=== PATIENT | female | born 1990 | race Caucasian/White ===

== ENCOUNTER 2017-04-27 11:42 | Observation (INO) ==
[2017-04-27 12:26] LABS: Bilirubin,Urine Negative (Negative); Blood,Urine Negative (Negative); Clarity,Urine Clear (Clear); Color,Urine Yellow (Yellow); Glucose,Urine (UA) Normal (Normal); Ketones,Urine Negative (Negative); Leukocyte Esterase,Urine Negative (Negative); Nitrite,Urine Negative (Negative); Protein,Urine Negative (Neg-Trace); Specific Gravity,Urine 1.013 (1.010-1.025); Urobilinogen,Urine Normal (Normal)
[2017-04-27 12:32] LABS: Amphetamine Screen,Urine Negative ng/mL (Cutoff=1000); Barbiturate Screen,Urine Negative ng/mL (Cutoff=200); Benzodiazepines Screen,Urine Negative ng/mL (Cutoff=200); Cannabinoid Screen,Urine Negative ng/mL (Cutoff = 50); Cocaine Screen,Urine Negative ng/mL (Cutoff= 300); Opiate Screen,Urine Negative ng/mL (Cutoff=300); Phencyclidine Screen,Urine Negative ng/mL (Cutoff=25)
--- NOTE | 2017-04-27 13:17 | OB/GYN Progress Note ---
Date of Encounter: 04/27/17 Time of Encounter: 13:13 - Assessment and Plan (1) 20 weeks gestation of Status: Acute FHTs 150s, Cervix closed; no evidence of premature onset of labor Discharged with return precautions (2) Vaginal discharge during in second trimester Status: Acute Speculum exam shows normal vaginal discharge. Negative pooling. Cervix closed/ thick/ on exam. Discharged home with labor precautions Subjective - Subjective Interval history: 20 weeks by LMP -- pt thinks may have lost some of the mucous plug. She has also has been having cramping, with no acute change in quality/severity/duration /timing. Called OB office and was referred to L&D for evaluation. Reports good movement, denies vaginal bleeding or leaking of fluid. Antepartum ROS: other (no other acute complaints), no loss of fluid, no vaginal bleeding Objective - Vital Signs Vital Signs: Intake and Output 04/26/17 04/27/17 04/27/17 23:59 07:59 15:59 Other: Weight 58 kg Patient Weight 04/27/17 23:59 Weight 58 kg - Exam FHR: auscultation normal FHR comments: FHTs 150-160 Auscultation: bilateral: normal Abdomen: Present: normal appearance, soft Uterus: Present: normal Cervical dilation: closed
== END 2017-04-27 13:00 | disposition home or self-care (01) ==
LOC: 1NENULAB
PROVIDERS: ADMIT Advanced Practice Midwife; ATTEND Advanced Practice Midwife

== ENCOUNTER → 2017-07-06 16:28 | Observation (INO) ==
[2017-07-06 14:53] LABS: Amphetamine Screen,Urine Negative ng/mL (Cutoff=1000); Barbiturate Screen,Urine Negative ng/mL (Cutoff=200); Benzodiazepines Screen,Urine Negative ng/mL (Cutoff=200); Cannabinoid Screen,Urine Negative ng/mL (Cutoff = 50); Cocaine Screen,Urine Negative ng/mL (Cutoff= 300); Opiate Screen,Urine Negative ng/mL (Cutoff=300); Phencyclidine Screen,Urine Negative ng/mL (Cutoff=25)
--- NOTE | 2017-07-06 15:13 | OB/GYN Progress Note ---
Date of Encounter: 07/06/17 Time of Encounter: 15:11 - Assessment and Plan (1) Decreased movement Current Visit: Yes Status: Acute Pt feeling movement here. Reacive NST, discharged home with when to return to [facility]. Qualifiers: Fetus number: single or unspecified fetus Trimester: third trimester Qualified Code(s): O36.8130 - Decreased movements, third trimester, not applicable or unspecified Subjective - Subjective Interval history: Pt states only 1 movement this morning, fetus was really active last night. Denies contractions, vaginal bleeding or leaking of fluid. Pt has felt movement in triage. Antepartum ROS: no loss of fluid, no vaginal bleeding, no movement normal , no contractions Objective - Exam FHR: auscultation normal FHR comments: reactive nST baseline 135 Auscultation: bilateral: normal Abdomen: Present: normal appearance, soft, gravid
== END | disposition home or self-care (01) ==
LOC: 1NENULAB
PROVIDERS: ADMIT Obstetrics & Gynecology; ATTEND Obstetrics & Gynecology

== ENCOUNTER → 2017-08-11 13:36 | Observation (INO) ==
--- NOTE | 2017-08-11 12:48 | OB/GYN Progress Note ---
Date of Encounter: 08/11/17 Time of Encounter: 12:46 - Assessment and Plan (1) 35 weeks gestation of Current Visit: Yes Status: Acute Extended monitoring x 2 hours - category I tracing Follow up in office as scheduled Return tomorrow for BMZ labor precautions given OK to discharge home (2) NST (non-stress test) reactive on surveillance Current Visit: Yes Status: Acute Subjective - Subjective Principal diagnosis: extended monitoring after questionable NST Interval history: Ms. Leiva is a 27-year-old at 35 weeks 1 days gestation with an estimated date of of 09/14/17 dated by LMP. She presents from the office today with concerns after questionable nonstress test. Per Dr. Perdomo she had 1 late deceleration. She endorses good movement and denies contractions, leakage of fluid, vaginal bleeding. Antepartum ROS: movement normal, no new complaints, no loss of fluid, no vaginal bleeding, no contractions Objective - Vital Signs Vital Signs: Intake and Output 08/10/17 08/11/17 08/11/17 23:59 07:59 15:59 Other: Weight 64.093 kg Patient Weight 08/11/17 23:59 Weight 64.093 kg - Exam FHR: category 1 FHR comments: Baseline 135 Moderate variability Accelerations present 15 x 15 No decelerations FHR category I [place]-rare contractions seen, patient denies feeling them. Auscultation: bilateral: normal Abdomen: Present: normal appearance, soft, gravid Uterus: Present: normal, firm
[2017-08-11 13:21] LABS: Amphetamine Screen,Urine Negative ng/mL (Cutoff=1000); Barbiturate Screen,Urine Negative ng/mL (Cutoff=200); Benzodiazepines Screen,Urine Negative ng/mL (Cutoff=200); Cannabinoid Screen,Urine Negative ng/mL (Cutoff = 50); Cocaine Screen,Urine Negative ng/mL (Cutoff= 300); Opiate Screen,Urine Negative ng/mL (Cutoff=300); Phencyclidine Screen,Urine Negative ng/mL (Cutoff=25)
[~2017-08-11 13:36] MED LIST: Betamethasone Acet/SodPhos 6 MG/ML MDV IM SCH
== END | disposition home or self-care (01) ==
LOC: 1NENULAB
PROVIDERS: ADMIT Obstetrics & Gynecology; ATTEND Obstetrics & Gynecology

== ENCOUNTER 2017-09-12 04:00 | Inpatient (IN) ==
[2017-09-12] MEDS ORDERED: *HR* Nalbuphine 10 MG/ML AMPUL IVP PRN (05:03)
[2017-09-12] MEDS ORDERED: Naloxone 0.4 MG/ML INJ IVP PRN (05:03)
[2017-09-12] MEDS ORDERED: Ondansetron 4 MG/2 ML VIAL IVP PRN (05:03)
[2017-09-12] MEDS ORDERED: Famotidine 20 MG/2 ML VIAL IVP PRN (05:03)
[2017-09-12] MEDS ORDERED: Metoclopramide 10 MG/2 ML VIAL IVP PRN (05:03)
[2017-09-12 05:19] LABS: Basophils # 0.1 K/mcL (0.0-0.2); Basophils % 0.5 %; Eosinophils # 0.2 K/mcL (0.0-0.6); Eosinophils % 1.2 %; Hematocrit 40.4 % (35.3-44.9); Hemoglobin 13.7 g/dL (11.5-15.4); Immature Granulocytes % 1.1 % (0-4); Lymphocytes % 29.5 %; Mean Corpuscular HGB Conc 33.9 g/dL (31.6-35.5); Mean Corpuscular Hemoglobin 29.2 pg (28.0-33.3); Mean Corpuscular Volume 86.1 fL (83.0-100.0); Mean Platelet Volume 9.3 fL (9.4-12.4); Monocytes # 0.9 K/mcL (0.0-1.3); Monocytes % 5.4 %; Neutrophils # 10.5 K/mcL (1.6-8.9); Platelet Count 309 K/mcL (140-400); Red Blood Count 4.69 M/mcL (3.82-4.97); Red Cell Distribution Width 14.3 % (11.5-14.5); Segmented Neutrophils % 62.3 %
[2017-09-12] MEDS: Clindamycin 900 MG/50 ML 900 MG/50 ML IV.SOLN IVPB SCH ×2 (05:31→13:38)
[2017-09-12] MEDS: Ringers Solution, Lactated 1,000 ML IVC SCH ×2 (05:32→13:37)
[2017-09-12 05:44] LABS: Amphetamine Screen,Urine Negative ng/mL (Cutoff=1000); Barbiturate Screen,Urine Negative ng/mL (Cutoff=200); Benzodiazepines Screen,Urine Negative ng/mL (Cutoff=200); Cannabinoid Screen,Urine Negative ng/mL (Cutoff = 50); Cocaine Screen,Urine Negative ng/mL (Cutoff= 300); Opiate Screen,Urine Negative ng/mL (Cutoff=300); Phencyclidine Screen,Urine Negative ng/mL (Cutoff=25)
[2017-09-12 05:45] LABS: Alanine Aminotransferase 12 Units/L (7-52); Aspartate Amino Transferase 19 Units/L (13-39); BUN/Creatinine Ratio 15 (6-26); Blood Urea Nitrogen 9 mg/dL (6-20); Lactate Dehydrogenase 142 Units/L (140-271); eGFR For African Americans > 60 (> 60); eGFR For Non-African Americans > 60 (> 60)
[2017-09-12] MEDS: miSOPROStol 25 MCG TABLET VG PRN ×2 (06:58→10:00)
--- NOTE | 2017-09-12 07:24 | Anesthesia Evaluation PreOp ---
Date of Encounter: 09/12/17 Time of Encounter: 07:22 - Past History Planned Operation: paola Cardiac History: Denies any Significant Hx Pulmonary History: Former smoker (quit 2 months ago) NON CDL DRIVER History: Denies Any Significant HX Other Medical History: Denies Any Significant HX Anesthesia History: No Prior Anesthetic Complications, Past Anesthesia : Yes (39 weeks, ) Alcohol Use: none Drug use: none Medications and Allergies Vit/Iron Fumarate/FA [ Tablet] 1 tab PO DAILY 04/27/17 [History ] valACYclovir [Valtrex] 1,000 mg PO DAILY 08/22/17 [History] 3 Allergy/AdvReac Type Severity Reaction Status Date / Time doxycycline Allergy Hives Verified 09/12/17 04:34 Penicillins Allergy Hives Verified 09/12/17 04:34 shellfish derived Allergy Hives Verified 09/12/17 04:34 - Meds/Allergy Pre-op Review Medications Reviewed: Yes Allergies Reviewed: Yes Beta Blockers on Current Med List: No Anesthesia Results - Labs 09/12/17 04:58 09/12/17 04:58 Anesthesia Exam O2 Sat Height 1.63 m Height 1.63 m Weight 69.2 kg Weight 69.2 kg Height: 64 Weight: 152 - HEENT Pupil (Motor): Pupils equal Mallampati: II Teeth: Normal Oral Opening: Greater than 3 - NON CDL DRIVER LOC: Oriented NON CDL DRIVER Motor: Normal RUE, Normal LUE, Normal RLE, Normal LLE, Normal Face NON CDL DRIVER Sensory: Normal: RUE, LUE, RLE, LLE, Face - Cardiac Rhythm: Regular Murmur: None JVD: No Carotid Bruit: No - Pulmonary Breath Sounds: bilateral Clear Respiratory Effort: Symmetrical Anesthesia Assess/Plan ASA Score: 2 Modified [place] Scale for Level of Consciousness: Cooperative, oriented, and tranquil Anesthetic Plan: Regional Autologous Blood: No Monitoring Plan: Standard Monitors
--- NOTE | 2017-09-12 08:37 | OB/GYN History & Physical ---
Date of Encounter: 09/12/17 Time of Encounter: 08:30 Assessment and Plan (1) 39 weeks gestation of Current visit: Yes Status: Acute Prob list: 39+4 weeks GBS+ HSV2 ppx asymmetric IUGR Plan: next dose of cytotec @ 11, cont Clinda for GBS ppx, ok for epidural if she desires, will AROM with advanced cervical dilation, anticipate History of Present Illness HPI: Ms. Melchor is a 27 year old female @ 39+5 weeks who presents to the office for IOL. 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 No LOF, VB or ctxs, feels god FM. Past Med Surg Social Fam HX - Past Medical History Medical history: no medical history Psychiatric history: no psych history - Past Surgical History Surgical History: no surgical history - Social History Smoking Status: Former smoker Smokeless Tobacco Status: No Alcohol use: none Drug use: none - Family History Mother Family Member Ethnicity: Non- Living Status: Still Living Hx Family Cardiac Disorders: No Hx Family Respiratory Disorders: No Hx Family Cancer: No Hx Family GI Disorders: No Hx Family Genitourinary Disorders: No Hx Family Endocrine Disorder: No Hx Family Musculoskeletal Disorders: No Hx Family Neuromuscular Disorders: No Hx Family Neurologic Disorders: No Hx Family HEENT Disorders: No Hx Family Autoimmune Disorders: No Hx Family Reproductive Disorders: No Hx Family Psychosocial Disorders: No Hx Family Medical Disorders: No Obstetrical History - Pregnancies : 2 Para: 1 Medications and Allergies Vit/Iron Fumarate/FA [ Tablet] 1 tab PO DAILY 04/27/17 [History ] valACYclovir [Valtrex] 1,000 mg PO DAILY 08/22/17 [History] 3 Allergy/AdvReac Type Severity Reaction Status Date / Time doxycycline Allergy Hives Verified 09/12/17 04:34 Penicillins Allergy Hives Verified 09/12/17 04:34 shellfish derived Allergy Hives Verified 09/12/17 04:34 Review of System OB All systems PM: reviewed and no additional remarkable complaints except as stated Exam - Constitutional Constitutional: no acute distress - HEENT HEENT: Normocephaly - Neck Neck exam: full ROM (normal resp effort) - Lungs Respiratory exam: CTAB - Cardiovascular Cardiovascular exam: RRR - Abdomen Abdomen: Present: gravid - Extremities Extremities exam: warm - Cervix Dilation: 1 Effacement: 70 Results Result Diagrams: 09/12/17 04:58 09/12/17 04:58 Abnormal lab results WBC 16.9 K/mcL (4.3-11.1) H 09/12/17 04:58 MPV 9.3 fL (9.4-12.4) L 09/12/17 04:58 Neutrophils # 10.5 K/mcL (1.6-8.9) H 09/12/17 04:58 Lymphocytes # 5.0 K/mcL (0.6-4.6) H 09/12/17 04:58 All other labs normal. - VTE Reasons for not Prescribing Prophylaxis: Treatment not Indicated - Low risk for VTE
--- NOTE | 2017-09-12 13:27 | OB Labor Progress Note ---
Date of Encounter: 09/12/17 Time of Encounter: 13:22 Labor Progress Note - Subjective Subjective: patient doing well, not feeling much with ctxs - Vital Signs Vital Signs: VSS - Cervix Cervix: 2/80 - Heart Tones Heart Tones: CAT 1 - [place]: occasional - Plan Plan: guzmán placed, ok for pitocin after cytotec is done, anticipate
--- NOTE | 2017-09-12 13:30 | OB Labor Progress Note ---
Date of Encounter: 09/12/17 Time of Encounter: 13:28 Labor Progress Note - Subjective Subjective: Patient resting in bed. Discussed POC with patient. Patient denies any questions or concerns. - Cervix Cervix: 2/80/-1 - Heart Tones Heart Tones: 135 bpm moderate variability +15x15 accels no decels noted. - [place]: 5-6 min apart - Interventions Interventions: SVE, placement of guzmán catheter for IOL. 30cc sterile water placed in balloon. Patient tolerated well. - Plan Plan: Continue labor management.
[2017-09-12] MEDS ORDERED: Oxytocin 20 units/ LR 1000 mL 20 UNIT/1,000 ML BAG IVC SCH ×2 (14:45→22:59)
--- NOTE | 2017-09-12 17:05 | OB Labor Progress Note ---
Date of Encounter: 09/12/17 Time of Encounter: 17:03 Labor Progress Note - Subjective Subjective: Patient resting in bed. Patient asking to have water broke at this time. - Cervix Cervix: 4/80/-1 - Heart Tones Heart Tones: 135 bpm moderate variability +15x15 accels no decels noted. Cat. 1 tracing - [place]: 3-6 min apart - Interventions Interventions: SVE, AROM moderate amount of clear fluid. Patient tolerated well. - Plan Plan: Continue labor management.
--- NOTE | 2017-09-12 18:25 | OB Labor Progress Note ---
Date of Encounter: 09/12/17 Time of Encounter: 18:22 Labor Progress Note - Subjective Subjective: Patient reports contractions are getting stronger. Patient requesting epidural at this time. - Cervix Cervix: 5/90/-1 - Heart Tones Heart Tones: 125 bpm moderate variability +15x15 accels, early decels noted. - [place]: 3-4 min apart - Interventions Interventions: SVE, IUPC placed without difficulty. Patient tolerated well. - Plan Plan: Continue labor management Epidural for pain management anticipate
[2017-09-12] MEDS ORDERED: *HR* FentaNYL (PF) 100 MCG/2 ML VIAL ONE (18:36)
[2017-09-12] MEDS ORDERED: Lidocaine -MPF 1% 5 ML AMPUL ONE (18:36)
[2017-09-12] MEDS ORDERED: *HR* Ropivacaine/PF 0.2% 20 ML VIAL ONE (18:36)
[2017-09-12] MEDS ORDERED: Bupivacaine-MPF 0.25% 10 ML VIAL ONE (18:36)
[2017-09-12] MEDS ORDERED: Epidural Premix (fent/bupiv) 110 ML EP ONE (18:54)
--- NOTE | 2017-09-12 19:02 | Anesthesia Procedures ---
Date of Encounter: 09/12/17 Time of Encounter: 19:00 Procedures: Anesthesia - Epidural/Spinal Patient ID/Chart reviewed: Yes Patient examined: Yes OB Eval: Gestational age: 40 OB Eval: : 2 OB Eval: Hx Para: 1 OB Eval: Dilated at (cm): 4 OB Eval: Contractions: Non-stressed pattern Consent Obtained: Yes Supplemental Oxygen: None/Room Air Site Prep: Aseptic Technique, 0.5% Chlorhexidine/Alcohol Patient position: upright Local Anesthetic: Lidocaine 1% Amount of Local Anesthetic used: 3 Touhy Needle Gauge: 18 Touhy Needle Depth (cm): 4 Catheter Depth at Skin (cm): 10 Test Dose (1.5% Lido + Epi): Volume given (mls): 3 Test Dose Result: Negative Loading Dose: 0.25% Marcaine (mls): 4 Loading Dose: Fentanyl (mcg): 100 Loading Dose: Other: NSS 4ML Loading Dose Administered: Thru Touhy Needle Infusion Med: 0.125% Bupivacaine w/ 2 mcg/ml Fentanyl Infusion Rate (mls/hr): 14 Interspace Used: L2-L3 Loss of Resistance (DIANA): Yes Blood: No CSF: No Paresthesia: No
--- NOTE | 2017-09-12 20:11 | OB/GYN Procedure Note ---
Delivery - Delivery Date: 09/12/17 Provider: Jeramy Perdomo Intrapartum events: none Delivery induction: guzmán, misoprostol Delivery augmentation: rupture of membranes Delivery monitor: external FHT, external uterine Anesthesia: epidural Quantitated Blood Loss: 100 - Repair Episiotomy: none Laceration Description: Perineal - 2nd Degree - Complications Delivery complications: none - Disposition Mom disposition: stable in LDR - Comments Comments: Tracy is a 27 y/o s/p @ 39+ weeks. She delivered a viable male infant APGARs 9/9, weight 2630g, 5lbs 13oz, 3VC @ 1944hrs. Infant delivered BRIAN , placenta delivered @ 1948hrs. EBL 100cc. 2nd degree perineal laceration repaired with 3-0 vicryl. Mother and stable.
[2017-09-12] MEDS ORDERED: Ibuprofen 600 MG TABLET PO PRN (22:59)
[2017-09-12] MEDS ORDERED: Measles/Mumps/Rubella Vacc 0.5 ML VIAL SQ PRN (22:59)
[2017-09-12] MEDS ORDERED: Benzocaine/Menthol 56 GM AEROSOL SPRAY TP PRN (22:59)
[2017-09-12] MEDS ORDERED: Acetaminophen 325 MG TABLET PO PRN (22:59)
[2017-09-13 07:53] VITALS: BP 106/49
[2017-09-13] MEDS ORDERED: Prenatal Vit/FA 1 EACH TABLET PO SCH (09:00)
--- NOTE | 2017-09-13 09:31 | Discharge Summary ---
Date of Encounter: 09/13/17 Time of Encounter: 09:27 - Discharge Diagnosis (1) Vaginal delivery Priority: Primary Status: Acute Comments: stable PPD#1, meeting all milestones, bleeding minimal, and desires discharge - Discharge Medications Prescriptions: Ibuprofen [Motrin] 600 mg PO Q6HR PRN #60 tablet PRN Reason: Cramping Docusate [Colace] 100 mg PO BID #60 capsule Home Medications: Vit/Iron Fumarate/FA [ Tablet] 1 tab PO DAILY 04/27/17 [History ] Acetaminophen [Tylenol] 650 mg PO Q6HR PRN tablet 09/13/17 [Rx] Benzocaine/Menthol [place] [Dermoplast [place]] 1 appl TP QID PRN aerosol 09/13/17 [Rx] Docusate [Colace] 100 mg PO BID #60 capsule 09/13/17 [Rx] Ibuprofen [Motrin] 600 mg PO Q6HR PRN #60 tablet 09/13/17 [Rx] Vit/FA 1 each PO DAILY tablet 09/13/17 [Rx] Allergies/Adverse Reactions: 3 Allergy/AdvReac Type Severity Reaction Status Date / Time doxycycline Allergy Hives Verified 09/12/17 04:34 Penicillins Allergy Hives Verified 09/12/17 04:34 shellfish derived Allergy Hives Verified 09/12/17 04:34 Data Procedures and tests throughout hospitalization: Laboratory Tests 09/12/17 09/12/17 09/12/17 04:58 04:58 04:58 WBC 16.9 H RBC 4.69 Hgb 13.7 Hct 40.4 MCV 86.1 MCH 29.2 MCHC 33.9 RDW 14.3 Plt Count 309 MPV 9.3 L Immature Gran % 1.1 Seg Neutrophils % 62.3 Lymphocytes % 29.5 Monocytes % 5.4 Eosinophils % 1.2 Basophils % 0.5 Neutrophils # 10.5 H Lymphocytes # 5.0 H Monocytes # 0.9 Eosinophils # 0.2 Basophils # 0.1 BUN 9 Creatinine 0.62 Est GFR ( Amer) > 60 Est GFR (Non-Af Amer) > 60 BUN/Creatinine Ratio 15 Uric Acid 5.0 AST 19 ALT 12 Lactate Dehydrogenase 142 Urine Opiates Screen Negative Ur Barbiturates Screen Negative Ur Phencyclidine Scrn Negative Ur Amphetamines Screen Negative U Benzodiazepines Scrn Negative Urine Cocaine Screen Negative U Marijuana (THC) Screen Negative Ur Drug Screen Interp See Below Date of admission: 09/12/17 04:16 Primary care physician: PCP NONE Consults: 09/12/17 22:59 Consult to Cig[facility] Bander [CONS] Routine Comment: Vaginal delivery, consult needed Discharging clinician: Yadira Marks Anticipated date of discharge: 09/13/17 - Patient Status Disposition: Home, Self-Care Condition: Good Functional capacity at discharge: independent ambulation Overall status at discharge: patient is back to baseline - Discharge Instructions Follow Up With: NONE,PCP [Primary Care Provider] - Trena Harrison GIFT OFFICER [Family Provider] - Jeramy Perdomo MD [Partnered Physician] - - Diet and Activity Activity: resume usual activities as tolerated Diet: regular diet Hospital Course Reason for admission: induction of labor, IUP at term Delivery: Episiotomy: none Other procedures: none complications: none Discharge diagnosis: IUP at term delivered [place] baby: male Hospital course: Delivery - Delivery Date: 09/12/17 Provider: Jeramy Perdomo Intrapartum events: none Delivery induction: guzmán, misoprostol Delivery augmentation: rupture of membranes Delivery monitor: external FHT, external uterine Anesthesia: epidural Quantitated Blood Loss: 100 - Repair Episiotomy: none Laceration Description: Perineal - 2nd Degree - Complications Delivery complications: none - Disposition Mom disposition: stable in LDR - Comments Comments: Tracy is a 27 y/o s/p @ 39+ weeks. She delivered a viable male APGARs 9/9, weight 2630g, 5lbs 13oz, 3VC @ 1944hrs. delivered BRIAN , placenta delivered @ 1948hrs. EBL 100cc. 2nd degree perineal laceration repaired with 3-0 vicryl. Mother and stable. Time Attestation: Total time spent providing and/or coordinating discharge services: Time Spent: Less than 30 minutes Exam - Constitutional Vitals: Temp Pulse Resp BP Pulse Ox 98.5 F 88 18 106/49 96 09/13/17 07:52 09/13/17 07:52 09/13/17 07:52 09/13/17 07:52 09/13/17 07:52 General appearance IM: A&O X 3, no acute distress - Respiratory Respiratory exam: Present: CTAB - Cardiovascular Cardiovascular exam IM: Present: RRR - GI/Abdominal GI/Abdominal exam IM: soft - Uterus Position: At Umbilicus - Extremities Exam Extremities exam IM: Present: normal capillary refill, normal inspection - Neurological Exam Neurological exam: normal gait, oriented X3 - Psychiatric Additional comments: Reports good mood
== END 2017-09-13 21:00 | disposition home or self-care (01) | DRG 560 ==
LOC: 1NENULAB 04:16 → 1NENUOBS 22:48
PROVIDERS: ADMIT Advanced Practice Midwife; ATTEND Student in an Organized Health Care Education/Training Program